=== PATIENT | male | born 1945 | race Caucasian/White ===

== ENCOUNTER 2016-10-07 23:50 | Inpatient (IN) | payer MEDICARE ==
--- NOTE | ~2016-10-07 | DS ---
Discharge Summary [place] [address] [place]. [address] NAME: CARIDAD ANSARI SR : 43 STATUS : DIS IN PAT#: [id number] AGE: 71 ADM/REG DATE : 10/08/16 MR#: [id number] REPORT SERV DATE: 10/11/16 DICTATED BY: JIMENA ZAMUDIO DATE: 10/10/16 REPORT STATUS : Draft TRANSCRIBED BY: MODSilver DATE: 10/10/16 ADMISSION DATE: 10/08/2016 DISCHARGE DATE: 10/10/2016 REASON FOR ADMISSION: Hematochezia. HPI: Please refer to Dr. Aguilera's history and physical dated 10/08/2016 for complete details on the patient's admission. The patient was admitted to hospice Service for hematochezia. HOSPITAL COURSE: The patient had an uncomplicated hospital course. The patient takes Eliquis for paroxysmal atrial fibrillation. He had some hematochezia. He presented with a normal hemoglobin, which have been checked periodically, and did not have a significant drop. Dr. 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 The patient was returned back to the aburto, started back on a clear liquid diet, and advance his diet as tolerated. He did not have any further drops in hemoglobin. He did have a small dark bloody bowel movement the day prior to discharge, which was felt to be just residual bleeding. Dr. Rosado has signed off, and the patient will follow up with Dr. Rosado in a few weeks. The patient has reached maximal hospitalization,. He will be discharged in a stable condition. DISCHARGE DIAGNOSES: 1. 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 2. Orthostasis, now resolved. 3. History of diverticulitis, status post colonic resection. 4. Atrial fibrillation, on Eliquis, now on hold for a few days. 5. Type 2 diabetes. 6. History of prostate cancer, status post XRT. DISCHARGE MEDICATIONS: Include, 1. Aricept 10 mg at bedtime. 2. Zantac 150 mg every morning. 3. Lumigan 1 drop at bedtime. 4. Namenda 5 mg twice a day. 5. Flomax 0.4 mg daily. 6. Eliquis 5 mg twice a day, please hold for 3 days. 7. Tenormin 12.5 mg twice a day. 8. Tylenol p.r.n. 9. Vitamin B12. The patient will follow up with Dr. Rosado and Dr. Bal. MELODY/FIDE Discharge Summary [address] [address] NAME: CARIDAD ANSARI : 43 STATUS : DIS IN PAT#: [id number] AGE: 71 ADM/REG DATE : 10/08/16 MR#: [id number] REPORT SERV DATE: 10/11/16 DICTATED BY: JIMENA ZAMUDIO DATE: 10/10/16 REPORT STATUS : Draft TRANSCRIBED BY: FIDE DATE: 10/10/16 Jimena Zamudio MD / [id number] CC: Anjel Rosado M.D.
--- NOTE | ~2016-10-07 | EGD ---
EGD REPORT [facility] [address] [address] NAME: CARIDAD ANSARI SR : 43 STATUS : DIS IN PAT#: [id number] AGE: 71 ADM/REG DATE : 10/08/16 MR#: [id number] REPORT SERV DATE: 11/01/16 DICTATED BY: MARYELLEN THOMAS DATE: 11/01/16 REPORT STATUS : Draft TRANSCRIBED BY: [employer] DATE: 11/01/16 [facility] Patient Name: Caridad Ansari Date of : 1945 Attending MD: MARYELLEN THOMAS MD Procedure Date No Time: 10/09/2016 Procedure: Colonoscopy Indications: Hematochezia Referring MD: PRAVEEN DAWSON MD Medicines: as per anesthesia Complications: No immediate complications. Procedure: Pre-Anesthesia Assessment: - ASA Grade Assessment: III - A patient with severe systemic disease. After I obtained informed consent, the scope was passed under direct vision. Throughout the procedure, the patient's blood pressure, pulse, and oxygen saturations were monitored continuously. The PCF H190L [id number] was introduced through the anus and advanced to the cecum, identified by appendiceal orifice and ileocecal valve. The colonoscopy was performed without difficulty. The patient tolerated the procedure. The quality of the bowel preparation was adequate to identify polyps. Findings: The perianal and digital rectal examinations were normal. Internal hemorrhoids were found during endoscopy and were moderate. There was evidence of a prior end-to-side colo-colonic anastomosis in the sigmoid colon. This was patent. This was characterized by healthy appearing mucosa. This was traversed. xrt proctitis, Coagulation for bleeding prevention using argon plasma at 0.8 liters/minute and 30 brower was successful. Impression: - Internal hemorrhoids. - Patent end-to-side colo-colonic anastomosis. Recommendation: - Continue present medications. - Repeat colonoscopy in 5 years for surveillance. Procedure Code(s): --- Professional --- 75016, Colonoscopy, flexible, proximal to splenic flexure; with control of bleeding (eg, injection, bipolar cautery, unipolar cautery, laser, heater probe, stapler, plasma single stayer operator) EGD REPORT [facility] [address] [address] NAME: CARIDAD ANSARI SR : 43 STATUS : DIS IN PAT#: [id number] AGE: 71 ADM/REG DATE : 10/08/16 MR#: [id number] REPORT SERV DATE: 11/01/16 DICTATED BY: MARYELLEN THOMAS. DATE: 11/01/16 REPORT STATUS : Draft TRANSCRIBED BY: [employer] DATE: 11/01/16 Diagnosis Code(s): --- Professional --- K64.8, Other hemorrhoids Z98.0, Intestinal bypass and anastomosis status K92.1, Melena CPT copyright 2013 [employer]. All rights reserved. The codes documented in this report are preliminary and upon real estate appraiser supervisor review may be revised to meet current compliance requirements. MARYELLEN THOMAS MD 10/09/2016 9:35 AM This report has been signed electronically. Number of Addenda: 0 Note Initiated On: 10/09/2016 8:12 AM Scope Withdrawal Time 0 hours 14 minutes 14 seconds [id number]
--- NOTE | ~2016-10-07 | EGD ---
EGD REPORT [facility] [address] [address] NAME: CARIDAD ANSARI SR : 43 STATUS : ADM IN PAT#: [id number] AGE: 71 ADM/REG DATE : 10/08/16 MR#: [id number] REPORT SERV DATE: 10/09/16 DICTATED BY: MARYELLEN THOMAS DATE: 10/09/16 REPORT STATUS : Draft TRANSCRIBED BY: [employer] DATE: 10/09/16 [facility] Patient Name: Caridad Ansari Date of : 1945 Attending MD: MARYELLEN THOMAS MD Procedure Date No Time: 10/09/2016 Procedure: Colonoscopy Indications: Hematochezia Referring MD: PRAVEEN DAWSON MD Medicines: as per anesthesia Complications: No immediate complications. Procedure: Pre-Anesthesia Assessment: - ASA Grade Assessment: III - A patient with severe systemic disease. After I obtained informed consent, the scope was passed under direct vision. Throughout the procedure, the patient's blood pressure, pulse, and oxygen saturations were monitored continuously. The PCF H190L [id number] was introduced through the anus and advanced to the cecum, identified by appendiceal orifice and ileocecal valve. The colonoscopy was performed without difficulty. The patient tolerated the procedure. The quality of the bowel preparation was adequate to identify polyps. Findings: The perianal and digital rectal examinations were normal. Internal hemorrhoids were found during endoscopy and were moderate. There was evidence of a prior end-to-side colo-colonic anastomosis in the sigmoid colon. This was patent. This was characterized by healthy appearing mucosa. This was traversed. xrt proctitis, Coagulation for bleeding prevention using argon plasma at 0.8 liters/minute and 30 brower was successful. Impression: - Internal hemorrhoids. - Patent end-to-side colo-colonic anastomosis. Recommendation: - Continue present medications. - Repeat colonoscopy in 5 years for surveillance. Procedure Code(s): --- Professional --- 42544, Colonoscopy, flexible, proximal to splenic flexure; with control of bleeding (eg, injection, bipolar cautery, unipolar cautery, laser, heater probe, stapler, plasma bending roll hand) EGD REPORT [facility] [address] [address] NAME: CARIDAD ANSARI SR : 43 STATUS : ADM IN [facility]#: [id number] AGE: 71 ADM/REG DATE : 10/08/16 MR#: [id number] REPORT SERV DATE: 10/09/16 DICTATED BY: MARYELLEN THOMAS. DATE: 10/09/16 REPORT STATUS : Draft TRANSCRIBED BY: [employer] DATE: 10/09/16 Diagnosis Code(s): --- Professional --- K64.8, Other hemorrhoids Z98.0, Intestinal bypass and anastomosis status K92.1, Melena CPT copyright 2013 [employer]. All rights reserved. The codes documented in this report are preliminary and upon top carrier review may be revised to meet current compliance requirements. MARYELLEN THOMAS MD 10/09/2016 9:35 AM This report has been signed electronically. Number of Addenda: 0 Note Initiated On: 10/09/2016 8:12 AM Scope Withdrawal Time 0 hours 14 minutes 14 seconds [address] [id number]
--- NOTE | ~2016-10-07 | HP ---
History And Physical [place] [address] [place]. [address] NAME: CARIDAD ANSARI SR : 43 STATUS : ADM IN PAT#: [id number] AGE: 71 ADM/REG DATE : 10/08/16 MR#: [id number] REPORT SERV DATE: 10/08/16 DICTATED BY: BERTRAND BAUTISTA DATE: 10/08/16 REPORT STATUS : Draft TRANSCRIBED BY: MODL DATE: 10/08/16 DATE OF ADMISSION: 10/07/2016 CHIEF COMPLAINT: Bright red blood per rectum. HISTORY OF PRESENT ILLNESS: This is a 71-year-old male with a history of atrial fibrillation on Eliquis, history of diverticulitis in the past, diabetes mellitus, and prostate cancer status post radiation therapy, who presents to the emergency room at [facility] with the above-mentioned complaint. History is obtained from the patient, his , who is at bedside, and reviewing data available on the [employer] system. According to Mr. Ansari, he has been in his usual state of health until about two weeks or so ago when he started noticing bright red blood per rectum. It sort of stopped in the middle and he had mentioned this to Dr. Ghanshyam Bal, his primary care physician, who wanted to hear from him if it should occur again. About a week later, he again saw some blood per rectum and he told his and they decided to let Dr. Bal know. Dr. Bal had asked them to immediately go to the ER, but the patient and decided to wait a little while to see if it will pass. Last night he passed large amount of blood per rectum with clots which was bright red in color, and they decided to come to the emergency room right away. During this time, he has not had any falls, loss of consciousness, or any other symptoms. He did have some lower abdominal cramping pain. In the emergency room, CT scan of the abdomen and pelvis was done which was unremarkable. He did have bright red blood per rectum upon examination and did have orthostasis as well. Hospitalist Service is asked to admit him for further evaluation and treatment. At the time of my evaluation, he denied any chest pain, palpitations, or orthopnea. He had no cough, hemoptysis, night sweats, or weight loss. He has not had any recent falls or loss of consciousness. He denied any fevers, but did have chills especially today when he was in the ER. No history of vomiting. He did have some nausea. He did not have any hematemesis or hematuria. No other history of recent travel or exposures other than those mentioned above. PAST MEDICAL HISTORY: His past medical history is significant for: 1. History of prostate cancer for which he had six weeks of radiation therapy here at [facility]. 2. History of atrial fibrillation, was on anticoagulation with Eliquis. 3. History of diverticulitis in the past. 4. Diabetes mellitus type 2. SOCIAL HISTORY: He has about 15 to 20-pack year history of smoking and has not smoked in a very long time. He denied alcohol use or recreational drug use. He used to work at [employer], currently retired. FAMILY HISTORY: Noncontributory. History And Physical [address] [address] NAME: BARISOFYCASSIECARIDADKITTY BENTON SR : 43 STATUS : ADM IN [facility]#: [id number] AGE: 71 ADM/REG DATE : 10/08/16 MR#: [id number] REPORT SERV DATE: 10/08/16 DICTATED BY: BERTRAND BAUTISTA DATE: 10/08/16 REPORT STATUS : Draft TRANSCRIBED BY: FIDE DATE: 10/08/16 MEDICATIONS: His medications at home were reviewed by me in the chart today and reordered by me. REVIEW OF SYSTEMS: As in history of present illness. All other systems were reviewed in detail and are quite unremarkable. PHYSICAL EXAMINATION: GENERAL: This is a 71-year-old not in any acute distress. HEENT: His head is atraumatic and normocephalic. He is alert, awake, oriented to time, place, and person. Pupils are equal, reacting to light and accommodating. External ocular muscles are intact. Membranes are moist and pink. Sclerae are nonicteric. NECK: Supple with no jugular venous distention, lymphadenopathy, or thyromegaly. LUNGS: Clear to auscultation with no wheezes, rubs, or crackles. HEART: Heart sounds were regular with no murmurs, rubs, or gallops. ABDOMEN: Soft and nontender. Bowel sounds are present. EXTREMITIES: No cyanosis, clubbing, or edema. NEUROLOGIC: Grossly intact. No focal sensory or motor deficits. Higher functions appeared intact. Gait was not examined. VITAL SIGNS: Today showed a temperature of 97.2, pulse 61, respirations 12 a minute, blood pressure was 124/69, and oxygen saturations were 99%, breathing 2 L of oxygen via nasal cannula. LABORATORY DATA: Reviewed on the [employer] system showed a normal CMP with a blood glucose of 132. A CBC revealed a white blood cell count of 3800, hemoglobin was 12.9, hematocrit 39.6 which has not dropped significantly from his last reading on 10/03/2016. His platelet count was 139. His prothrombin time today was 16.3 with an INR of 1.3. A 12-lead EKG done in the emergency room was reviewed and interpreted by me. There is sinus bradycardia with a rate of [address] scan of the abdomen and pelvis did not reveal any acute intraabdominal or pelvic pathology at this time. IMPRESSION: 1. Bright red blood per rectum. 2. Acute gastrointestinal bleeding. 3. Orthostasis. 4. History of diverticulitis with colon resection. 5. History of atrial fibrillation, on Eliquis. 6. Diabetes mellitus type 2. 7. Prostate cancer. PLAN: We will admit Mr. Ansari to the Hospitalist Service with telemetry. We will start him History And Physical [address] [address] NAME: CARIDAD ANSARI SR : 43 STATUS : ADM IN [facility]#: [id number] AGE: 71 ADM/REG DATE : 10/08/16 MR#: [id number] REPORT SERV DATE: 10/08/16 DICTATED BY: BERTRAND BAUTISTA DATE: 10/08/16 REPORT STATUS : Draft TRANSCRIBED BY: MODL DATE: 10/08/16 on IV fluids for volume resuscitation. Follow hemoglobin and hematocrit levels, type, cross and transfuse if needed. We will hold his Eliquis and it has to be at least 24 hours before he can be considered for any procedures. We will keep him n.p.o. for now, but we will let Dr. Anjel Rosado, whom we will consult to maybe place him on clear liquids if he is not having a massive GI bleed. We will place him on NovoLog insulin per sliding scale for blood sugar control. Also obtain cultures, start him on empiric IV antibiotics at this time. He will be on SCDs for DVT prophylaxis while he is here. I have discussed the above plans with the patient and . Questions were answered and they are agreeable to the above recommendations. Hospitalist Service will be following him during his service here. /FIDE Bertrand Bautista M.D. / [id number] CC: Ghanshyam Bal M.D.
--- NOTE | ~2016-10-07 | CN ---
Consultation Report [place] [id number] [place]. [address] NAME: CARIDAD ANSARI SR : 43 STATUS : ADM IN PAT#: [id number] AGE: 71 ADM/REG DATE : 10/08/16 MR#: [id number] REPORT SERV DATE: 10/08/16 DICTATED BY: MARYELLEN THOMAS DATE: 10/08/16 REPORT STATUS : Draft TRANSCRIBED BY: MODL DATE: 10/08/16 CONSULTATION DATE OF CONSULTATION: 10/08/2016 HISTORY OF PRESENT ILLNESS: This is a 71-year-old white male with intermittent bleeding bright red blood over the last couple weeks which worsened last night. He had been running some low blood pressure, on a beta yash, that has been decreased and ultimately stopped by Dr. Bal. There was no fever and no abdominal pain. Some nausea with occasional headache. Some history of GERD in the past. Hemoglobin 12.9 today. White count of 3800. INR 1.3. History of atrial fibrillation, on Eliquis; last dose yesterday. The patient is a diabetic, has had prostate CA with radiation completed in 2015. History of diverticular disease with resection in 2003. Past history of colon polyps. History of melanoma that he had in his right ear resected. SOCIAL HISTORY: Negative EtOH and nicotine. FAMILY HISTORY: Negative for colon cancer. PHYSICAL EXAMINATION: GENERAL: A well-developed well-nourished white male alert and oriented x3. HEENT: Anicteric. CHEST: Clear. HEART: Irregular rhythm. ABDOMEN: Soft and nontender. Bowel sounds are active. EXTREMITIES: Grossly intact. ASSESSMENT: 1. Lower gastrointestinal bleed with history of diverticular disease with resection, past history of colon polyps, history of prostate cancer with radiation. Hemoglobin 12.9, has been on Eliquis. 2. Prostate carcinoma. 3. Diabetes mellitus. 4. Atrial fibrillation, on Eliquis. 5. History of gastroesophageal reflux disease . 6. History of melanoma. SUGGESTIONS: Continue to follow hemoglobin and hematocrit. We will schedule for colonoscopy. Eliquis currently on hold. Thank for the consultation. Consultation Report [address] [place]. [address] NAME: CARIDAD ANSARI SR : 43 STATUS : ADM IN PAT#: [id number] AGE: 71 ADM/REG DATE : 10/08/16 MR#: [id number] REPORT SERV DATE: 10/08/16 DICTATED BY: MARYELLEN THOMAS DATE: 10/08/16 REPORT STATUS : Draft TRANSCRIBED BY: FIDE DATE: 10/08/16 DC/FIDE Maryellen Thomas M.D. / [id number] CC: MD Ghanshyam Riggs M.D.
[2016-10-07 22:56] LABS: BASOPHILS 0.8 %; BASOPHILS ABSOLUTE 0.03 10/3/uL (0.0-0.16); EOSINOPHILS 3.9 %; EOSINOPHILS ABSOLUTE 0.15 10/3/uL (0.0-0.53); ER CBC TAT 0 Hrs 05 Mins; HEMATOCRIT 39.6 % (40.0-51.0); HEMOGLOBIN 12.9 g/dL (13.6-17.8); IMMATURE GRANULOCYTES 0.3 %; IMMATURE GRANULOCYTES ABSOLUTE 0.01 10/3/uL (0.0-0.11); LYMPHOCYTES 21.7 %; LYMPHOCYTES ABSOLUTE 0.83 10/3/uL (0.67-4.30); MANUAL DIFF NO %; MEAN CORPUS HGB CONC 32.6 g/dL (32.0-36.0); MEAN CORPUSCULAR HEMOGLOB 30.3 pg (26.0-34.0); MONOCYTES 14.1 %; MONOCYTES ABSOLUTE 0.54 10/3/uL (0.21-1.20); NEUTROPHILS 59.2 %; NEUTROPHILS ABSOLUTE 2.26 10/3/uL (2.02-8.40); PLATELET COUNT 139 10/3/uL (150-400); RBC DISTRIBUTION WIDTH 14.3 % (12.0-16.0); RED CELL COUNT 4.26 10/6/uL (4.7-6.1); WHITE BLOOD CELLS 3.8 10/3/uL (4.5-10.5)
[2016-10-07 23:11] LABS: ALBUMIN 4.1 G/DL (3.5-5.0); CALCIUM, SERUM 8.5 MG/DL (8.5-10.4); CHLORIDE, SERUM 107 MMOL/L (96-112); CO2 (CARBON DIOXIDE) 28 MMOL/L (24-34); CREATININE 1.23 MG/DL (0.70-1.30); GFR AFRICAN AMERICAN 67 ML/MIN (>=60); GFR NON AFRICAN AMERICAN 58 ML/MIN (>=60); POTASSIUM, SERUM 3.8 MMOL/L (3.5-5.3); SGOT(AST) 12 U/L (5-40); SGPT(ALT) 20 U/L (5-65); SODIUM, SERUM 143 MMOL/L (135-148); TOTAL BILIRUBIN 0.5 MG/DL (0-1.2); TOTAL PROTEIN 7.2 G/DL (6.0-8.5)
[2016-10-07 23:14] LABS: A/G RATIO 1.3 (0.7-1.9); ALKALINE PHOSPHATASE 94 U/L (45-117); BUN (BLOOD UREA NITROGEN) 18 MG/DL (6-23); GLOBULIN 3.1 G/DL (2.5-4.1); GLUCOSE, SERUM 132 MG/DL (60-99)
[2016-10-07 23:16] LABS: INTERNATIONAL NORMAL RATI 1.3 UNITS (-); PARTIAL THROMBO TIME 33.7 SEC (22.5-37.2); PROTIME (NOT ORD) 16.3 SEC (12.0-14.5)
[~2016-10-07 23:50] MED LIST: ACET500CAP PO; ASAB PO; ATEN50 PO; ELIQUIS 5 MG TAB5 MG PO; GLUCPH PO; GLUCPH8 PO; LUMIGAN OPH; LUMIGAN2.5 ML OPH; MULTIPLE VIT PO; MULTIVIT/MIN PO; TRICOR145 PO; VITE PO; ZANTAC150 MG PO; [UNRECOGNIZED DRUG - OTHER] PO
[2016-10-08] MEDS ORDERED: ELIQUIS 5 MG TAB5 MG PO (05:57)
[2016-10-08] MEDS ORDERED: ZANTAC150 MG PO (05:58)
[2016-10-08] MEDS ORDERED: FLOMAX4 PO (05:59)
[2016-10-08] MEDS ORDERED: ATEN25 PO ×2 (06:00→06:01)
[2016-10-08] MEDS ORDERED: VITAMIN B-121000 MC1 SL (06:01)
[2016-10-08] MEDS ORDERED: ARICEPT10 PO (06:02)
[2016-10-08] MEDS ORDERED: NAMENDA5 PO (06:02)
[2016-10-08] MEDS ORDERED: LUMIGAN2.5 ML OPH (06:02)
[2016-10-08] MEDS ORDERED: ACET500CAP PO (06:04)
[2016-10-08 08:37] LABS: HEMATOCRIT 38.7 % (40.0-51.0); HEMOGLOBIN 12.7 g/dL (13.6-17.8)
[2016-10-08 14:46] LABS: HEMATOCRIT 37.7 % (40.0-51.0); HEMOGLOBIN 12.3 g/dL (13.6-17.8)
[2016-10-08 19:53] LABS: HEMATOCRIT 40.1 % (40.0-51.0); HEMOGLOBIN 13.2 g/dL (13.6-17.8)
[2016-10-09 05:32] LABS: BASOPHILS 0.2 %; BASOPHILS ABSOLUTE 0.01 10/3/uL (0.0-0.16); EOSINOPHILS 2.7 %; EOSINOPHILS ABSOLUTE 0.13 10/3/uL (0.0-0.53); HEMATOCRIT 36.7 % (40.0-51.0); HEMOGLOBIN 12.1 g/dL (13.6-17.8); IMMATURE GRANULOCYTES 0.2 %; IMMATURE GRANULOCYTES ABSOLUTE 0.01 10/3/uL (0.0-0.11); LYMPHOCYTES 15.2 %; LYMPHOCYTES ABSOLUTE 0.73 10/3/uL (0.67-4.30); MEAN CORPUSCULAR HEMOGLOB 30.1 pg (26.0-34.0); MEAN CORPUSCULAR VOLUME 91.3 fL (80-100); MEAN PLATELET VOLUME 11.8 fL (9.2-13.0); MONOCYTES 14.3 %; MONOCYTES ABSOLUTE 0.69 10/3/uL (0.21-1.20); NEUTROPHILS 67.4 %; NEUTROPHILS ABSOLUTE 3.24 10/3/uL (2.02-8.40); PLATELET COUNT 119 10/3/uL (150-400); RBC DISTRIBUTION WIDTH 13.9 % (12.0-16.0); RED CELL COUNT 4.02 10/6/uL (4.7-6.1); WHITE BLOOD CELLS 4.8 10/3/uL (4.5-10.5)
[2016-10-09 05:33] LABS: MANUAL DIFF NO %
[2016-10-09 05:36] LABS: INTERNATIONAL NORMAL RATI 1.3 UNITS (-); PARTIAL THROMBO TIME 32.8 SEC (22.5-37.2); PROTIME (NOT ORD) 15.6 SEC (12.0-14.5)
[2016-10-09 05:53] LABS: ALBUMIN 3.3 G/DL (3.5-5.0); ALKALINE PHOSPHATASE 51 U/L (45-117); BUN (BLOOD UREA NITROGEN) 11 MG/DL (6-23); CALCIUM, SERUM 8.1 MG/DL (8.5-10.4); CHLORIDE, SERUM 110 MMOL/L (96-112); CO2 (CARBON DIOXIDE) 25 MMOL/L (24-34); CREATININE 1.01 MG/DL (0.70-1.30); DIRECT BILIRUBIN < 0.1 MG/DL (0.0-0.4); GFR AFRICAN AMERICAN 85 ML/MIN (>=60); GFR NON AFRICAN AMERICAN 73 ML/MIN (>=60); GLUCOSE, SERUM 92 MG/DL (60-99); INDIRECT BILIRUBIN(NOT ORDER) 0.7 MG/DL (0.1-0.9); POTASSIUM, SERUM 3.8 MMOL/L (3.5-5.3); SGOT(AST) 12 U/L (5-40); SGPT(ALT) 16 U/L (5-65); SODIUM, SERUM 145 MMOL/L (135-148); TOTAL BILIRUBIN 0.8 MG/DL (0-1.2); TOTAL PROTEIN 5.7 G/DL (6.0-8.5)
[2016-10-10 05:32] LABS: BUN (BLOOD UREA NITROGEN) 9 MG/DL (6-23); CALCIUM, SERUM 8.3 MG/DL (8.5-10.4); CHLORIDE, SERUM 109 MMOL/L (96-112); CO2 (CARBON DIOXIDE) 26 MMOL/L (24-34); CREATININE 1.06 MG/DL (0.70-1.30); GFR AFRICAN AMERICAN 80 ML/MIN (>=60); GFR NON AFRICAN AMERICAN 69 ML/MIN (>=60); GLUCOSE, SERUM 99 MG/DL (60-99); PHOSPHORUS, SERUM 2.6 MG/DL (2.5-4.5); POTASSIUM, SERUM 3.7 MMOL/L (3.5-5.3); SODIUM, SERUM 145 MMOL/L (135-148)
[2016-10-10 05:33] LABS: BASOPHILS 0.4 %; BASOPHILS ABSOLUTE 0.02 10/3/uL (0.0-0.16); EOSINOPHILS ABSOLUTE 0.14 10/3/uL (0.0-0.53); HEMATOCRIT 36.8 % (40.0-51.0); HEMOGLOBIN 12.1 g/dL (13.6-17.8); LYMPHOCYTES 17.1 %; MEAN CORPUS HGB CONC 32.9 g/dL (32.0-36.0); MEAN CORPUSCULAR VOLUME 91.1 fL (80-100); MEAN PLATELET VOLUME 12.1 fL (9.2-13.0); MONOCYTES 11.1 %; MONOCYTES ABSOLUTE 0.52 10/3/uL (0.21-1.20); NEUTROPHILS 68.4 %; PLATELET COUNT 129 10/3/uL (150-400); RBC DISTRIBUTION WIDTH 14.1 % (12.0-16.0); RED CELL COUNT 4.04 10/6/uL (4.7-6.1); WHITE BLOOD CELLS 4.7 10/3/uL (4.5-10.5)
[2016-10-10 05:42] LABS: MANUAL DIFF NO %
== END 2016-10-10 12:18 | disposition home or self-care (01) | DRG 394 ==
LOC: ER 23:50 → 7NO 10-08 06:27
PROVIDERS: Emergency Medicine; Internal Medicine; Internal Medicine Gastroenterology
PROC: 0DBH8ZZ Excision of Cecum, Via Natural or Artificial Opening Endoscopic (ICD-10-PCS; principal; 2016-10-09 09:07)
DX: K62.7 Radiation proctitis (principal); K92.1 Melena; I48.2 Chronic atrial fibrillation; E11.9 Type 2 diabetes mellitus without complications; Z79.01 Long term (current) use of anticoagulants; Z85.46 Personal history of malignant neoplasm of prostate; K21.9 Gastro-esophageal reflux disease without esophagitis; Z86.010 Personal history of colon polyps; K64.8 Other hemorrhoids
CPT/HCPCS: 36415; 74177; 80048; 80053; 80076; 82962; 83735; 84100; 84145; 85014; 85018; 85025; 85610; 85730; 86850; 86900; 86901; 87040; 93005; 99285; A9270-GY; J1956; Q9967

== ENCOUNTER 2016-11-08 15:46 | Inpatient (IN) | payer MEDICARE ==
--- NOTE | ~2016-11-08 | DS ---
Discharge Summary [facility] [address] [place]. [address] NAME: CARIDAD ANSARI : 43 STATUS : DIS IN PAT#: [id number] AGE: 71 ADM/REG DATE : 11/08/16 MR#: [id number] REPORT SERV DATE: 11/12/16 DICTATED BY: LEANNA SOLOMON DATE: 11/11/16 REPORT STATUS : Draft TRANSCRIBED BY: MODL DATE: 11/11/16 ADMISSION DATE: 11/08/2016 DISCHARGE DATE: 11/11/2016 CONDITION ON DISCHARGE: Stable. DISPOSITION: Discharged to home. DIAGNOSES ON DISCHARGE: 1. 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 Rosado. 2. Paroxysmal atrial fibrillation-this is questionable as the patient now is in sinus rhythm all through. The patient has been on Eliquis for this. At this time, his CHADS score is 2. The patient is 71 years old, has hypertension but the patient does not have any heart disease. He has no history of congestive heart failure, no history of valvular heart disease, and no history of coronary artery disease. The patient also does not have diabetes and does not take any medications for diabetes either. Hence, his score is right around 2. At the same time, his HAS-BLED risk also is high. This was discussed with the patient and family and despite the need for Eliquis because he apparently has paroxysmal atrial fibrillation, family feels that they do not want him to go back on any anticoagulants right now. The also feels that he bleeds extremely easily and bruises extremely easily also. They understand the risks and at this time after discussing at length with family, they feel that the patient just needs to be on baby aspirin 81 mg once a day within the next five to seven days even though they realize that aspirin is of not any benefit or questionable benefit in reducing the risk for a cardioembolic stroke. At this time, the patient and want to see Dr. Rao in the next three to four weeks and then make the decision on restarting the Eliquis at that time. For now, the patient will be sent home in stable condition. Other diagnoses on this patient include a history of prostate cancer for which he has had radiation and after this, developed radiation proctitis and bleeding from the rectal area multiple times because of this. For now, the patient is stable and is being discharged home on the following medications. He will continue taking Aricept 10 mg once at bedtime, Zantac 150 mg p.o. at bedtime, Namenda 10 mg p.o. daily, Flomax 0.4 mg p.o. daily and also go on aspirin 81 mg p.o. daily in five to seven days. According to family, they want to stop the Eliquis for now after discussion, hence this will be held until they see Dr. Rao within the next few weeks. The most recent labs I have on this patient include the following. On the day of discharge, his hemoglobin and hematocrit is fairly stable, and hemoglobin and hematocrit is right around 11.8 and 35.1. His creatinine is normal at 1.02. Electrolytes are normal and hence he is being sent home in stable condition. Discharge Summary [address] [address] NAME: CARIDAD ANSARI : 43 STATUS : DIS IN PAT#: [id number] AGE: 71 ADM/REG DATE : 11/08/16 MR#: [id number] REPORT SERV DATE: 11/12/16 DICTATED BY: LEANNA SOLOMON DATE: 11/11/16 REPORT STATUS : Draft TRANSCRIBED BY: FIDE DATE: 11/11/16 I have spent about 35 minutes in coordinating discharge care of this patient including face- to-face encounter and summarizing this discharge. VERONICA/FIDE Leanna Solomon M.D. / [id number] CC: Araceli Del Real M.D.
--- NOTE | ~2016-11-08 | EGD ---
EGD REPORT [facility] [address] [address] NAME: CARIDAD ANSARI : 43 STATUS : ADM IN PAT#: [id number] AGE: 71 ADM/REG DATE : 11/08/16 MR#: [id number] REPORT SERV DATE: 11/10/16 DICTATED BY: MARYELLEN THOMAS DATE: 11/10/16 REPORT STATUS : Draft TRANSCRIBED BY: [employer] DATE: 11/10/16 Endoscopy Center Patient Name: Caridad Ansari Date of : 1945 Attending MD: MARYELLEN THOMAS MD Procedure Date No Time: 11/10/2016 Procedure: Flexible Sigmoidoscopy Indications: Hematochezia Referring MD: PRAVEEN DAWSON MD Medicines: as per anesthesia Complications: No immediate complications. Procedure: Pre-Anesthesia Assessment: - ASA Grade Assessment: III - A patient with severe systemic disease. After obtaining informed consent, the endoscope was passed under direct vision. Throughout the procedure, the patient's blood pressure, pulse, and oxygen saturations were monitored continuously. The PCF H190L [id number] was introduced through the anus and advanced to the rectum. The flexible sigmoidoscopy was accomplished without difficulty. The patient tolerated the procedure. The quality of the bowel preparation was adequate to identify polyps. Findings: The perianal and digital rectal examinations were normal. xrt proctitis, Coagulation for destruction of remaining portion of lesion using argon plasma at 0.8 liters/minute and 30 brower was successful. Internal hemorrhoids were found during endoscopy and were moderate. Impression: - Internal hemorrhoids. Recommendation: - Continue present medications. Procedure Code(s): --- Professional --- 08249, 52, Sigmoidoscopy, flexible; with ablation of tumor(s), polyp(s), or other lesion(s) not amenable to removal by hot biopsy forceps, bipolar cautery or snare technique Diagnosis Code(s): --- Professional --- K64.8, Other hemorrhoids K92.1, Melena EGD REPORT [facility] [address] [place] [address] [place]. [address] NAME: CARIDAD ANSARI : 41 STATUS : ADM IN [facility]#: [id number] AGE: 71 ADM/REG DATE : 11/08/16 MR#: [id number] REPORT SERV DATE: 11/10/16 DICTATED BY: MARYELLEN THOMAS. DATE: 11/10/16 REPORT STATUS : Draft TRANSCRIBED BY: [employer] DATE: 11/10/16 CPT copyright 2013 [employer]. All rights reserved. The codes documented in this report are preliminary and upon try out person review may be revised to meet current compliance requirements. MARYELLEN THOMAS MD 11/10/2016 2:30 PM This report has been signed electronically. Number of Addenda: 0 Note Initiated On: 11/10/2016 2:04 PM Scope Withdrawal Time 0 hours 0 minutes 0 seconds [address] [facility] [place] [address]
--- NOTE | ~2016-11-08 | CN ---
Consultation Report [facility] [address] [place]. [address] NAME: CARIDAD ANSARI : 41 STATUS : ADM [place] PAT#: [id number] AGE: 71 ADM/REG DATE : 11/08/16 MR#: [id number] REPORT SERV DATE: 11/09/16 DICTATED BY: EDGARDO ANDRES DATE: 11/08/16 REPORT STATUS : Draft TRANSCRIBED BY: MODL DATE: 11/08/16 DATE OF CONSULTATION: REFERRING REASON: Paroxysmal atrial fibrillation and GI bleeding in the setting of Eliquis use. HISTORY OF PRESENT ILLNESS: This is a pleasant 71-year-old white gentleman, well-known to Dr. Elroy Rao from [facility], who has been admitted to the Hospitalist Service for three weeks lasting bloody stool. He has similar presentation in October 2016. At that time, he was found to have internal hemorrhoids and radiation-induced proctitis. Eliquis has been continued. He is now in normal sinus rhythm. Of note, he has history of prostate cancer, treated with radiation until February 2016. The patient is ambulating without any support. No chest pain. No shortness of breath or palpitations. REVIEW OF SYSTEMS: The rest of review of systems is negative. PAST MEDICAL HISTORY: 1. Paroxysmal atrial fibrillation due to CHADS-VASc score of 3, anticoagulation with Eliquis. 2. 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 3. Remote history of colon resection. 4. Diabetes mellitus. 5. Prostate cancer, treated with radiation until February 2016. 6. Preserved systolic function with EF 55% in 2013. 7. History of MIKHAIL cardioversion in 2013. ALLERGIES: NO KNOWN DRUG ALLERGIES. SOCIAL HISTORY: The patient is retired. He has been smoking until 20 years ago. Denies drinking alcohol or using street drugs. He is ambulating without any support. FAMILY HISTORY: Negative for sudden cardiac deaths or premature coronary artery disease in family. HOME MEDICATIONS: Eliquis 5 mg twice a day, vitamin B, Aricept 10 mg once a day, Namenda 10 mg once a day, Zantac, Flomax 0.4 mg once a day. PHYSICAL EXAMINATION: GENERAL: In no acute distress. VITAL SIGNS: Blood pressure 155/72, heart rate 63, regular. HEENT: Pupils reactive to light and accommodation. Moist mucosa membrane. NECK: No JVD. Normal carotid upstroke. No carotid bruits. LUNGS: Clear to auscultation bilaterally. Normal inspiratory efforts. Consultation Report [facility] [address] [place]. [address] NAME: CARIDAD ANSARI : 41 STATUS : ADM [place] PAT#: [id number] AGE: 71 ADM/REG DATE : 11/08/16 MR#: [id number] REPORT SERV DATE: 11/09/16 DICTATED BY: EDGARDO ANDRES DATE: 11/08/16 REPORT STATUS : Draft TRANSCRIBED BY: FIDE DATE: 11/08/16 COR: Normal S1 and S2. No S3 or S4. No significant rub or murmurs. ABD: Soft, nontender, nondistended. EXT: No edema. Pedal pulses strong and equal bilaterally. SKIN: Warm with normal turgor. MS: No kyphosis. NEURO/PSY: Alert and oriented. Nonfocal. DATA: Hemoglobin is 13, platelet count 140,000. INR is 1.3. Electrolytes within normal limits. Electrocardiogram revealed normal sinus rhythm, 71 beats per minute. No acute ST-T changes. Per patient report, he has been told that in the emergency room, there was maybe episodes of atrial fibrillation and rhythm strip was not transferred to the floor. He denies any recent palpitations. ASSESSMENT AND PLAN: 1. Gastrointestinal bleeding. 2. Chronic anticoagulation for thromboembolic complications , currently in normal sinus rhythm Eliquis is on hold. He does not report any AV blocking agents while he remains in normal sinus rhythm. His blood pressure is stable. He had preserved systolic function previously. He may require GI workup as per Dr. Rosado. Dr. Rao will see the patient in the morning. Thank you very much for the consult. NALINI/FIDE Edgardo Andres M.D. / [id number] CC: Eleanor Durand M.D.
--- NOTE | ~2016-11-08 | CN ---
Consultation Report [place] [id number] [facility] [place]. [address] NAME: CARIDAD ANSARI : 41 STATUS : ADM [place] PAT#: [id number] AGE: 71 ADM/REG DATE : 11/08/16 MR#: [id number] REPORT SERV DATE: 11/09/16 DICTATED BY: MARYELLEN THOMAS DATE: 11/08/16 REPORT STATUS : Draft TRANSCRIBED BY: MODL DATE: 11/08/16 DATE OF CONSULTATION: 11/08/2016 HISTORY OF PRESENT ILLNESS: This is a 71-year-old white male admitted with some rectal bleeding, loose stools, history of prostate CA with radiation. Had colonoscopy one month ago with radiation proctitis and hemorrhoids, treated with APC, also had normal anastomosis where he had resection for diverticulitis in the past. Otherwise, unremarkable. Hemoglobin tonight was 13, white blood cell count was 5500, platelet count 140,000. INR of 1.3, history of atrial fibrillation, has been on Eliquis. He is diabetic, hypertensive. He has had renal stones, back surgery. SOCIAL HISTORY: Negative EtOH or nicotine. FAMILY HISTORY: Negative for colon cancer. PHYSICAL EXAMINATION: GENERAL: Well-developed, well-nourished white male, alert and oriented x3. HEENT: Anicteric. CHEST: Clear. HEART: Irregular rhythm. ABDOMEN: Soft, nontender. Bowel sounds active. EXTREMITIES: Grossly intact. NEUROLOGIC: Grossly intact. ASSESSMENT: 1. Rectal bleeding. History of radiation proctitis, treated with APC one month ago. Also has internal hemorrhoids. Also has a history of sigmoid resection for diverticular disease. Current hemoglobin is 13. 2. Past history of prostate carcinoma, treated with radiation. 3. Atrial fibrillation, on Eliquis. 4. Diabetes mellitus. 5. Hypertension. SUGGESTION: 1. I agree with holding Eliquis. 2. Cardiology is to see him as well. 3. Follow up H and H. 4. May need repeat exam for INR when he is seen and off Eliquis for few days. A flexible sigmoidoscopy to evaluate to whether he needs further treatment for radiation proctitis. We will follow with you. Thank you very much consultation. Consultation Report [place] [id number] [facility] [place]. [address] NAME: CARIDAD ANSARI : 41 STATUS : ADM [place] PAT#: [id number] AGE: 71 ADM/REG DATE : 11/08/16 MR#: [id number] REPORT SERV DATE: 11/09/16 DICTATED BY: MARYELLEN THOMAS DATE: 11/08/16 REPORT STATUS : Draft TRANSCRIBED BY: FIDE DATE: 11/08/16 DC/FIDE Maryellen Thomas M.D. / [id number] CC: Eleanor Durand M.D.
--- NOTE | ~2016-11-08 | HP ---
History And Physical [place] [address] [place]. [address] NAME: CARIDAD ANSARI : 41 STATUS : ADM [place] PAT#: [id number] AGE: 71 ADM/REG DATE : 11/08/16 MR#: [id number] REPORT SERV DATE: 11/08/16 DICTATED BY: LEANNA SOLOMON DATE: 11/08/16 REPORT STATUS : Draft TRANSCRIBED BY: MODL DATE: 11/08/16 DATE OF ADMISSION: 11/08/2016 HISTORY OF PRESENT ILLNESS: Mr. Ansari is a 71-year-old male patient, who was recently discharged from the hospital, coming back to the ER today because of rectal bleeding. The patient and his both gave me pieces of history. They state that for the last few weeks the patient has been having blood on the toilet paper when he wipes only, though amount of blood when he wipes has been gradually increasing, and this morning, he noticed that when he had a bowel movement, the entire toilet bowl was filled with bright red blood, and the tissue paper that he had used to wipe was soaked in blood. This scared them both and decided to come into the ER again. It is to be mentioned that this patient has had a very recent rectal bleed before just a few weeks ago when he was admitted. HOSPITAL COURSE: Please see Dr. Zamudio's discharge summary. The patient has a history of radiation proctitis as he has had to have radiation for prostate cancer and it was found that he had a few fragile blood vessels when he underwent colonoscopy last few weeks ago. Dr. Rosado performed the colonoscopy and performed coagulation on the blood vessels in the rectal area, and he was discharged to home and restarted on the Eliquis. The patient requires Eliquis because he has paroxysmal atrial fibrillation and numerous attempts of cardioversion apparently has failed. Dr. Rao is his regular school psychology specialist. Despite the atrial fibrillation that the patient had, the patient has a good or preserved ejection fraction of about 50% to 55%. Please see the school psychology specialist's previous note. Other than the rectal bleed, the patient has no other complaints. He states that he keeps the headache off and on and takes Tylenol for that. The patient denies any chest pain, blurry vision. He states that he gets out of breath only if he climbs a flight of stairs and that is nothing new for him. He denies any wheezing. He does have nausea off and on, but no vomiting or abdominal pain. He also complains of some pain in the left calf area. He states that his primary care physician has checked him out for blood clot in that area and the ultrasound has come back negative for any blood clots in the past. Other than that no other complaints. REVIEW OF SYSTEMS: Negative for all other systems. PAST MEDICAL HISTORY: Significant for: 1. Recurrent lower GI bleed or rectal bleed. 2. Radiation proctitis. 3. History of prostate cancer. 4. History of diverticulitis for which he had to have a partial colonic resection and colocolonic anastomosis in the past. 5. Paroxysmal atrial fibrillation and a history of cardioversion. Apparently, the cardioversion failed and the patient had to continue to be on Eliquis. Other condition also includes hypertension in the past. History And Physical [address] [address] NAME: CARIDAD ANSARI : 41 STATUS : ADM [place] PAT#: [id number] AGE: 71 ADM/REG DATE : 11/08/16 MR#: [id number] REPORT SERV DATE: 11/08/16 DICTATED BY: LEANNA SOLOMON DATE: 11/08/16 REPORT STATUS : Draft TRANSCRIBED BY: FIDE DATE: 11/08/16 FAMILY HISTORY: Positive for heart disease in father and he states that his father had to have pacemaker put in. SOCIAL HISTORY: The patient does not smoke. He does not drink any alcohol. Denies any illegal drug use. He is and his son is a police investigator. MEDICATION AND ALLERGIES: His home medication and allergies include the following. Allergies-he is allergic to neomycin, bacitracin, and polymyxin B. His home medications include Eliquis 5 mg p.o. b.i.d., Aricept 10 mg once at bedtime, Namenda 10 mg once daily, Zantac 150 mg p.o. at bedtime, and Flomax 0.4 mg once a day. Besides some vitamins and mineral tablets that he takes including vitamin B12. PHYSICAL EXAMINATION: GENERAL: The patient is alert, oriented and able to answer all his questions himself. Skin and mucous membranes appear well hydrated and moist. VITAL SIGNS: Show that his blood pressure is 138/72, O2 saturation 97% on room air. The patient is afebrile and his pulse is 74 per minute and regular right now. HEENT: Unremarkable. There is no facial asymmetry or facial droop. NECK: There is no JVD or thyromegaly. CARDIOVASCULAR SYSTEM: S1, S2 appreciated. Now, the patient is in sinus rhythm. There are no murmurs or rubs or gallops noted. RESPIRATORY SYSTEM: Completely clear lungs with no rales or rhonchi. ABDOMEN: Soft, nontender, nondistended. Bowel sounds are appreciated. No organomegaly noted. No hepatosplenomegaly noted. EXTREMITIES: There is no pedal edema. Pedal pulses are well felt. There is calf tenderness noted in the left calf. NEUROLOGIC: Normal. MUSCULOSKELETAL: As above. PSYCHIATRIC: Normal. Normal affect. However, the patient does take medications for dementia, namely Aricept and Namenda. LABORATORY DATA: The labs that I have on this patient include the following. His CBC shows a WBC count of 5.5, hemoglobin of 13, hematocrit of 38.6, and platelet count of 140. INR is 1.3. Comprehensive metabolic profile shows sodium 142, potassium 4.3, BUN 19, and creatinine 1.25. LFTs are normal. ASSESSMENT: My assessment is: 1. Recurrent rectal bleed in a patient who is on chronic anticoagulation with Eliquis-this could be from radiation proctitis again. The patient's family would like us to consult Dr. Rosado, his regular gastroenterology specialist, again. So, we will do so. Also, we will admit the patient under observation and keep him on IV normal saline at 75 mL an hour. We will hold Eliquis and acetaminophen for now. 2. Paroxysmal atrial fibrillation-the patient now is in sinus rhythm. I am not sure if this is lone atrial fibrillation, and if it is, how important it is to anticoagulate this patient. Hence, we will consult Dr. Rao, his school psychology specialist, to give us opinion History And Physical [address] [address] NAME: CARIDAD ANSARI : 41 STATUS : ADM [place] PAT#: [id number] AGE: 71 ADM/REG DATE : 11/08/16 MR#: [id number] REPORT SERV DATE: 11/08/16 DICTATED BY: LEANNA SOLOMON DATE: 11/08/16 REPORT STATUS : Draft TRANSCRIBED BY: MODSilver DATE: 11/08/16 on continuing anticoagulation and if so which anticoagulant to use. This is important as the patient has a history of recurrent rectal bleed now. This is the second or actually third time according to family that this is happening in a massive way. Hence, it would be good to consult Dr. Rao per family's request. 3. Radiation proctitis from history of radiation for prostate cancer. The patient may need a mild steroid cream like Anusol HC may be for regular use to help with this, but this is up to gastroenterology specialist to see if this could be useful. 4. Prostate cancer-treated and stable. 5. Left calf pain-unlikely that this is deep venous thrombosis and more likely that this is a Joshua cyst. However, we will get bilateral venous Doppler of both lower extremities as the patient does state that the both lower extremities alternatively swell off and on. Hence, we will get a lower extremity venous Doppler. If this is negative and this is a Joshua cyst, again the question arises as to whether the patient would benefit from nonsteroidal anti-inflammatory drug use. Regardless, his rectal bleed is a problem. We will monitor his H and H every 12 hours, check his troponin I x2 and also check his BNP to assess his volume status at this time. For now, we will admit this patient under observation, and if need be, change the admission status to full admit status. RHIANNONA/FIDE Leanna Solomon M.D. / [id number] CC: Leanna Solomon M.D.
[2016-11-08 13:36] LABS: BASOPHILS 0.2 %; BASOPHILS ABSOLUTE 0.01 10/3/uL (0.0-0.16); EOSINOPHILS 1.8 %; HEMATOCRIT 38.6 % (40.0-51.0); IMMATURE GRANULOCYTES 0.2 %; IMMATURE GRANULOCYTES ABSOLUTE 0.01 10/3/uL (0.0-0.11); LYMPHOCYTES 12.6 %; LYMPHOCYTES ABSOLUTE 0.69 10/3/uL (0.67-4.30); MEAN CORPUS HGB CONC 33.7 g/dL (32.0-36.0); MEAN CORPUSCULAR HEMOGLOB 30.9 pg (26.0-34.0); MEAN PLATELET VOLUME 12.3 fL (9.2-13.0); MONOCYTES 12.6 %; MONOCYTES ABSOLUTE 0.69 10/3/uL (0.21-1.20); NEUTROPHILS 72.6 %; NEUTROPHILS ABSOLUTE 3.99 10/3/uL (2.02-8.40); PLATELET COUNT 140 10/3/uL (150-400); RBC DISTRIBUTION WIDTH 14.5 % (12.0-16.0); RED CELL COUNT 4.21 10/6/uL (4.7-6.1); WHITE BLOOD CELLS 5.5 10/3/uL (4.5-10.5)
[2016-11-08 13:37] LABS: MANUAL DIFF NO %; MEAN CORPUSCULAR VOLUME 91.7 fL (80-100)
[2016-11-08 13:43] LABS: INTERNATIONAL NORMAL RATI 1.3 UNITS (-); PROTIME (NOT ORD) 16.1 SEC (12.0-14.5)
[2016-11-08 13:44] LABS: PARTIAL THROMBO TIME 34.5 SEC (22.5-37.2)
[2016-11-08 13:51] LABS: A/G RATIO 1.5 (0.7-1.9); ALBUMIN 4.1 G/DL (3.5-5.0); ALKALINE PHOSPHATASE 69 U/L (45-117); BUN (BLOOD UREA NITROGEN) 19 MG/DL (6-23); CALCIUM, SERUM 8.9 MG/DL (8.5-10.4); CHLORIDE, SERUM 110 MMOL/L (96-112); CO2 (CARBON DIOXIDE) 31 MMOL/L (24-34); CREATININE 1.25 MG/DL (0.70-1.30); GFR AFRICAN AMERICAN 66 ML/MIN (>=60); GFR NON AFRICAN AMERICAN 57 ML/MIN (>=60); GLOBULIN 2.8 G/DL (2.5-4.1); GLUCOSE, SERUM 108 MG/DL (60-99); POTASSIUM, SERUM 4.3 MMOL/L (3.5-5.3); SGOT(AST) 14 U/L (5-40); SGPT(ALT) 22 U/L (5-65); SODIUM, SERUM 142 MMOL/L (135-148); TOTAL BILIRUBIN 0.4 MG/DL (0-1.2); TOTAL PROTEIN 6.9 G/DL (6.0-8.5)
[~2016-11-08 15:46] MED LIST changes: +ARICEPT10 PO; +ATEN25 PO; +FLOMAX4 PO; +NAMENDA5 PO; +VITAMIN B-121000 MC1 SL
[2016-11-08] MEDS ORDERED: ELIQUIS 5 MG TAB5 MG PO (16:48)
[2016-11-08] MEDS ORDERED: ZANTAC150 MG PO (16:49)
[2016-11-08] MEDS ORDERED: FLOMAX4 PO (16:50)
[2016-11-08] MEDS ORDERED: CYANO1000T PO (16:50)
[2016-11-08] MEDS ORDERED: ARICEPT10 PO (16:50)
[2016-11-08] MEDS ORDERED: LUMIGAN2.5 ML OPH (16:51)
[2016-11-08] MEDS ORDERED: NAMENDA10 MG PO (16:51)
[2016-11-08] MEDS ORDERED: ACET500CAP PO (16:52)
[2016-11-09 04:51] LABS: BASOPHILS 0.2 %; BASOPHILS ABSOLUTE 0.01 10/3/uL (0.0-0.16); EOSINOPHILS 3.4 %; EOSINOPHILS ABSOLUTE 0.15 10/3/uL (0.0-0.53); HEMATOCRIT 36.2 % (40.0-51.0); HEMOGLOBIN 11.9 g/dL (13.6-17.8); IMMATURE GRANULOCYTES 0.2 %; IMMATURE GRANULOCYTES ABSOLUTE 0.01 10/3/uL (0.0-0.11); LYMPHOCYTES 18.3 %; LYMPHOCYTES ABSOLUTE 0.82 10/3/uL (0.67-4.30); MEAN CORPUS HGB CONC 32.9 g/dL (32.0-36.0); MEAN CORPUSCULAR HEMOGLOB 29.9 pg (26.0-34.0); MEAN PLATELET VOLUME 12.3 fL (9.2-13.0); MONOCYTES 12.3 %; MONOCYTES ABSOLUTE 0.55 10/3/uL (0.21-1.20); NEUTROPHILS 65.6 %; NEUTROPHILS ABSOLUTE 2.93 10/3/uL (2.02-8.40); PLATELET COUNT 132 10/3/uL (150-400); RBC DISTRIBUTION WIDTH 14.2 % (12.0-16.0); RED CELL COUNT 3.98 10/6/uL (4.7-6.1); WHITE BLOOD CELLS 4.5 10/3/uL (4.5-10.5)
[2016-11-09 04:56] LABS: MANUAL DIFF NO %
[2016-11-09 05:10] LABS: TROPONIN I <0.02 NG/ML (<0.05)
[2016-11-09 05:36] LABS: CALCIUM, SERUM 8.4 MG/DL (8.5-10.4); CHLORIDE, SERUM 111 MMOL/L (96-112); CREATININE 0.99 MG/DL (0.70-1.30); GFR AFRICAN AMERICAN 87 ML/MIN (>=60); GFR NON AFRICAN AMERICAN 75 ML/MIN (>=60); GLUCOSE, SERUM 105 MG/DL (60-99); SODIUM, SERUM 144 MMOL/L (135-148)
[2016-11-09 05:39] LABS: BUN (BLOOD UREA NITROGEN) 15 MG/DL (6-23); CO2 (CARBON DIOXIDE) 21 MMOL/L (24-34)
[2016-11-09 13:38] LABS: HEMATOCRIT 39.1 % (40.0-51.0); HEMOGLOBIN 12.9 g/dL (13.6-17.8)
[2016-11-10 04:56] LABS: BASOPHILS 0.5 %; BASOPHILS ABSOLUTE 0.02 10/3/uL (0.0-0.16); EOSINOPHILS 3.5 %; EOSINOPHILS ABSOLUTE 0.14 10/3/uL (0.0-0.53); HEMATOCRIT 35.7 % (40.0-51.0); HEMOGLOBIN 11.9 g/dL (13.6-17.8); IMMATURE GRANULOCYTES 0.3 %; IMMATURE GRANULOCYTES ABSOLUTE 0.01 10/3/uL (0.0-0.11); LYMPHOCYTES 19.5 %; LYMPHOCYTES ABSOLUTE 0.78 10/3/uL (0.67-4.30); MEAN CORPUS HGB CONC 33.3 g/dL (32.0-36.0); MEAN CORPUSCULAR HEMOGLOB 30.1 pg (26.0-34.0); MEAN CORPUSCULAR VOLUME 90.2 fL (80-100); MEAN PLATELET VOLUME 12.3 fL (9.2-13.0); MONOCYTES 12.5 %; NEUTROPHILS 63.7 %; NEUTROPHILS ABSOLUTE 2.55 10/3/uL (2.02-8.40); PLATELET COUNT 130 10/3/uL (150-400); RBC DISTRIBUTION WIDTH 14.2 % (12.0-16.0); RED CELL COUNT 3.96 10/6/uL (4.7-6.1)
[2016-11-10 04:57] LABS: MANUAL DIFF NO %
[2016-11-10 04:59] LABS: INTERNATIONAL NORMAL RATI 1.2 UNITS (-); PROTIME (NOT ORD) 14.6 SEC (12.0-14.5)
[2016-11-10 05:09] LABS: BUN (BLOOD UREA NITROGEN) 10 MG/DL (6-23); CALCIUM, SERUM 8.4 MG/DL (8.5-10.4); CHLORIDE, SERUM 111 MMOL/L (96-112); CO2 (CARBON DIOXIDE) 27 MMOL/L (24-34); CREATININE 0.98 MG/DL (0.70-1.30); GFR AFRICAN AMERICAN 88 ML/MIN (>=60); GFR NON AFRICAN AMERICAN 76 ML/MIN (>=60); GLUCOSE, SERUM 109 MG/DL (60-99); SODIUM, SERUM 146 MMOL/L (135-148)
[2016-11-11 04:50] LABS: BASOPHILS 0.1 %; BASOPHILS ABSOLUTE 0.01 10/3/uL (0.0-0.16); EOSINOPHILS 1.5 %; EOSINOPHILS ABSOLUTE 0.12 10/3/uL (0.0-0.53); HEMATOCRIT 35.1 % (40.0-51.0); HEMOGLOBIN 11.8 g/dL (13.6-17.8); IMMATURE GRANULOCYTES 0.1 %; IMMATURE GRANULOCYTES ABSOLUTE 0.01 10/3/uL (0.0-0.11); LYMPHOCYTES 8.8 %; LYMPHOCYTES ABSOLUTE 0.69 10/3/uL (0.67-4.30); MEAN CORPUS HGB CONC 33.6 g/dL (32.0-36.0); MEAN CORPUSCULAR HEMOGLOB 30.3 pg (26.0-34.0); MEAN CORPUSCULAR VOLUME 90.2 fL (80-100); MEAN PLATELET VOLUME 12.2 fL (9.2-13.0); MONOCYTES 9.6 %; MONOCYTES ABSOLUTE 0.76 10/3/uL (0.21-1.20); NEUTROPHILS 79.9 %; NEUTROPHILS ABSOLUTE 6.29 10/3/uL (2.02-8.40); PLATELET COUNT 133 10/3/uL (150-400); RBC DISTRIBUTION WIDTH 14.2 % (12.0-16.0); RED CELL COUNT 3.89 10/6/uL (4.7-6.1)
[2016-11-11 04:56] LABS: MANUAL DIFF NO %; WHITE BLOOD CELLS 7.9 10/3/uL (4.5-10.5)
[2016-11-11 05:09] LABS: BUN (BLOOD UREA NITROGEN) 9 MG/DL (6-23); CALCIUM, SERUM 8.6 MG/DL (8.5-10.4); CHLORIDE, SERUM 109 MMOL/L (96-112); CO2 (CARBON DIOXIDE) 29 MMOL/L (24-34); CREATININE 1.02 MG/DL (0.70-1.30); GFR AFRICAN AMERICAN 84 ML/MIN (>=60); GFR NON AFRICAN AMERICAN 73 ML/MIN (>=60); GLUCOSE, SERUM 96 MG/DL (60-99); POTASSIUM, SERUM 4.4 MMOL/L (3.5-5.3); SODIUM, SERUM 144 MMOL/L (135-148)
[2016-11-11] MEDS ORDERED: ASAB PO (10:43)
== END 2016-11-11 13:02 | disposition home or self-care (01) | DRG 394 ==
LOC: ER 15:46 → CDU1 17:17 → CDU2 18:21 → 7NO 11-09 16:17
PROVIDERS: Emergency Medicine; Internal Medicine Gastroenterology
PROC: 0D5P8ZZ Destruction of Rectum, Via Natural or Artificial Opening Endoscopic (ICD-10-PCS; principal; 2016-11-10 12:30)
DX: K62.7 Radiation proctitis (principal); K62.5 Hemorrhage of anus and rectum; I48.0 Paroxysmal atrial fibrillation; K64.8 Other hemorrhoids; Y84.2 Radiological procedure and radiotherapy as the cause of abnormal reaction of the patient, or of later complication, without mention of misadventure at the time of the procedure; Z85.46 Personal history of malignant neoplasm of prostate; Z92.3 Personal history of irradiation; Z79.01 Long term (current) use of anticoagulants; Z79.02 Long term (current) use of antithrombotics/antiplatelets
CPT/HCPCS: 36415; 80048; 80053; 82962; 83880; 84484; 85014; 85018; 85025; 85610; 85730; 86850; 86900; 86901; 93005; 93970; 99284; A9270-GY